=== PATIENT | female | born 1930 | race Caucasian/White ===

== ENCOUNTER 2020-04-13 09:58 | Inpatient (IN) | payer MEDICARE, BC, OTHER ==
--- NOTE | 2020-04-13 10:30 | RAD ---
Exam:2 views left hip HISTORY: Pain. Injury. Fall. COMPARISON: None FINDINGS: Comminuted intertrochanteric fracture. Visualized left bony pelvis and sacrum are intact. There is diffuse bony mineralization. IMPRESSION: Intertrochanteric fracture.
--- NOTE | 2020-04-13 10:49 | RAD ---
EXAM: XR Pelvis AP STANDARD PROVIDED CLINICAL HISTORY: Left hip pain after fall from standing. COMPARISON: None FINDINGS: There is a comminuted intertrochanteric left hip fracture with mild separation of fracture fragments. Lesser trochanter fracture fragment is slightly displaced medially. Slight varus angulation of fracture fragments is present. No additional fracture is seen, and there is no dislocation. Degenerat thong change seen in the visualized lower lumbar spine. Vascular calcifications and phleboliths overlie the pelvis. IMPRESSION: Comminuted and mildly intertrochanteric left hip fracture with slight varus angulation of f racture fragments.
--- NOTE | 2020-04-13 11:02 | CT ---
Exam: Head CT without contrast HISTORY: Fall. Trauma. Pain. COMPARISON: none FINDINGS: Hemorrhage: No intraparenchymal hemorrhage or extra-axial hematoma. Brain parenchyma: Cortical carroll-white matter differentiation is preserved. No mass effect or midline shift. Basilar cisterns are patent.. White matter hypodensities due to chronic small vessel ischemic change. 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 Remote lacunar inf arct involving the left garcia radiata. Ventricular system: Ventricles and sulci are patent and symmetric. Calvarium: Intact. Sinuses and mastoid air cells: Mucous retention cyst in the right sphenoid sinus. IMPRESSION: No intracranial post traumatic sequelae.
[2020-04-13] MEDS ORDERED: CEFAZOLIN 2 GM in Premix Bag 1 BAG IVPB SCH (11:15)
[2020-04-13 11:20] LABS: #Eosinphils 0.2 thou/uL (0.0-0.7); #Lymphocytes 1.2 thou/uL (1.20-3.40); #Monocytes 0.9 thou/uL (0.11-0.59); #Neutrophils 10.4 thou/uL (1.40-6.50); %Eosinophils 1.5 % (0.0-10.0); %Lymphocytes 9.4 % (21.0-51.0); %Monocytes 7.1 % (0.0-10.0); %Neutrophils 82.1 % (42.0-75.0); Hemoglobin 13.7 g/dL (12.0-16.0); Mean Corpuscular HGB CONC 32.8 g/dL (32.0-36.0); Mean Corpuscular Hemoglobin 30.5 pg (27.0-31.0); Mean Platelet Volume 6.5 fL (7.4-10.4); Platelet Count 170 thou/uL (130-400); RBC Distribution Width 11.5 % (11.5-14.5); Red Blood Cell (RBC) Count 4.48 mill/uL (4.20-5.40); White Blood Cell (WBC) Count 12.6 thou/uL (4.8-10.8)
--- NOTE | 2020-04-13 11:22 | RAD ---
RADIOGRAPH LEFT FEMUR 2 VIEWS: DATE: 04/13/2020. TIME: 10:43 AM. HISTORY: An 89-year-old female with acute traumatic left hip pain radiating down the thigh from fall. FINDINGS: There is an intertrochanteric fracture, with mild to moderate displacement of fragments, and mild clarke us angulation. No fracture of the mid diaphysis or distal metaphysis identified. IMPRESSION: Acute, traumatic, displaced intertrochanteric fracture of the left proximal femur. POS: JIN
--- NOTE | 2020-04-13 11:23 | RAD ---
RADIOGRAPH CHEST 1 VIEW: DATE: 04/13/2020. HISTORY: An 89-year-old female for preoperative clearance FINDINGS: The thoracic aorta is tortuous and ectatic. There is no evidence of air space density, pneumothorax, or pulmonary edema. The lateral costophrenic angles are sharp. There is no cardiomegaly. IMPRESSION: 1) No acute pulmonary findings. 2) Ectasia of thoracic aorta. gilberto [] POS: JIN
[2020-04-13 11:36] LABS: ALT (SGPT) 11 U/L (8-55); AST (SGOT) 16 U/L (5-34); Albumin 3.8 g/dL (3.4-4.8); Alkaline Phosphatase 58 U/L (40-110); Anion Gap 9 mmol/L (10-20); BUN (Urea Nitrogen) 17 mg/dL (9.8-20.1); Bilirubin, Total 0.5 mg/dL (0.2-1.2); Calc. Creatinine Clearance 0 mL/min (70-130); Calcium 8.6 mg/dL (7.8-10.44); Carbon Dioxide 26 mmol/L (23-31); Chloride 107 mmol/L (98-107); Estimated GFR-MDRD 62; Globulin 2.4 g/dL (2.4-3.5); Glucose 127 mg/dL (83-110); Potassium 4.4 mmol/L (3.5-5.1); Protein, Total 6.2 g/dL (6.0-8.3); Sodium 138 mmol/L (136-145)
[2020-04-13] MEDS ORDERED: Clindamycin/D5W 900 MG in Premix Bag 1 BAG IVPB SCH (11:45)
[2020-04-13 11:56] LABS: Phosphorus 3.2 mg/dL (2.3-4.7)
[2020-04-13] MEDS ORDERED: Phenylephrine 10 MG/ML VIAL ONE (12:14)
[2020-04-13] MEDS ORDERED: Acetaminophen 500 MG TAB ONE (12:17)
[2020-04-13] MEDS ORDERED: Fentanyl 100 MCG/2 ML VIAL ONE ×5 (12:38→15:49)
[2020-04-13] MEDS ORDERED: Levofloxacin 500 mg/D5W 100 ml Premix Bag ONE (12:45)
[2020-04-13] MEDS ORDERED: Clindamycin/D5W 900 mg/50 ml Premix Bag ONE (12:45)
[2020-04-13] MEDS ORDERED: Dextrose 5% in Water 1,000 ML IV PRN (12:49)
[2020-04-13] MEDS ORDERED: Dextrose 50% Abboject 50 ML SYRINGE SLOW IVP PRN (12:49)
[2020-04-13] MEDS ORDERED: hydrALAZINE 20 MG/ML VIAL SLOW IVP PRN (12:49)
[2020-04-13] MEDS ORDERED: Morphine 2 MG/ML VIAL SLOW IVP PRN (12:49)
[2020-04-13] MEDS ORDERED: Ondansetron PF 4 MG/2 ML Vial IVP PRN (12:49)
--- NOTE | 2020-04-13 12:53 | CON ---
DATE OF CONSULTATION: HISTORY OF PRESENT ILLNESS: We were asked by ER to see this very nice lady. The patient was at [facility] when she put her foot up on a lower stool to trim her toenails. Her right foot was in a slippery sock and she fell, breaking her left hip. No other injuries or complaints. No loss of consciousness. She states she is for the most part healthy and independent. She takes no blood thinners and has not eaten anything since last night. Her pain currently is tolerable. She is resting on a gurney in room 9 in the emergency room. PAST MEDICAL HISTORY: Positive for some cholesterol, hypertension, some pain, and some osteoporosis. PAST SURGICAL HISTORY: Tonsils when she was young and she has had 3 children. CURRENT MEDICATIONS: 1. Simvastatin. 2. Amlodipine. 3. Tramadol. 4. Alendronate. SENSITIVITIES: To [place], possibly penicillin and aspirin. She does state the aspirin made her feel feverish and the [place] made her stomach hurt. PCN, penicillin, might have been a rash. FAMILY HISTORY: For this visit is noncontributory. SOCIAL HISTORY: Again, she lives in [facility]. No alcohol, nicotine, or drug products whatsoever, and she has two children who live locally. REVIEW OF SYSTEMS: Left hip pain. Otherwise denies any other positive review of systems. PHYSICAL EXAMINATION: GENERAL: Well-nourished, well-developed, very sweet lady, resting on the gurney in room 9. Speech clear. Affect pleasant. Answers questions appropriately. Alert and oriented x3. HEENT: Scalp atraumatic. Face symmetric. Tongue midline. NECK: Supple. Trachea midline. UPPER EXTREMITIES: Equal size, shape, symmetry. Normal bulk and tone. VITAL SIGNS: Respirations 16. No acute distress. PELVIS: No pain with rocking, although it does cause some left hip pain. LOWER EXTREMITIES: Her left lower extremity is almost out to length as her right lower extremity. She does have some tenderness to palpation over her left hip and movement of the leg does cause her some pain. The bilateral lower extremity sensitivities are intact as are movements from the knee down. DP and PT pulses are equal. ASSESSMENT: Left hip fracture. PLAN: Trauma needs to see the patient. I would like her to get into surgery today with Dr. Toney. I spoke to the patient about this and she is amenable to go forth with surgery. I did answer her questions and concerns. We discussed risks and benefits of surgery, and again, she is amenable to go forth with surgery. She will need rapid COVID test, I will get her booked in the OR. Antibiotics ordered, and hopefully, Trauma will allow her medical clearance for surgery today. Job ID: [id number]
[2020-04-13] MEDS ORDERED: traMADol HCl 50 MG TAB PO PRN ×2 (12:57→18:57)
[2020-04-13] MEDS ORDERED: Cyclobenzaprine 10 MG TAB PO PRN (12:57)
[2020-04-13] MEDS ORDERED: Sodium Chloride 0.9% 1,000 ML IV SCH (13:00)
[2020-04-13] MEDS ORDERED: Ibuprofen 200 MG TAB PO PRN (13:42)
[2020-04-13] MEDS ORDERED: traMADol HCl 50 MG TAB PO SCH (14:00)
[2020-04-13] MEDS ORDERED: Promethazine HCl 25 MG/ML VIAL SLOW IVP PRN (14:02)
[2020-04-13] MEDS ORDERED: Promethazine HCl 25 MG/ML VIAL IM PRN (14:02)
[2020-04-13] MEDS ORDERED: PACU-Morphine 4MG/ML VIAL SLOW IVP PRN (14:02)
--- NOTE | 2020-04-13 14:19 | RAD ---
Exam: XR Hip Lt 2-3 View HISTORY: ORIF left hip COMPARISON: 04/13/2020 at 1026 hours. FINDINGS/IMPRESSION: 3 intraoperative fluoroscopic images left hip are submitted. Images demonstrate internal fixation of intertrochanteric left hip fracture with antegrade intramedullary samir and dynamic compression screw as well as distal locking screw transfixing the proximal left femur. There is improvement in alignmen t of fracture fragments. No hardware complication is seen. Subcutaneous emphysematous is seen adjacent to the hip related to recent postoperative change. Fluoroscopy: Time-41.5 seconds Dose-6.58 mGy
[2020-04-13] MEDS ORDERED: Rocuronium Bromide 10 MG/ML (10ML VIAL) ONE (14:23)
[2020-04-13] MEDS ORDERED: Dexamethasone 20 MG/5 ML VIAL ONE (14:23)
[2020-04-13] MEDS ORDERED: EPHEDRINE 25 MG/5 ML SYRINGE ONE (14:23)
[2020-04-13] MEDS ORDERED: PROPOFOL 200 MG/20 ML VIAL ONE (14:23)
[2020-04-13] MEDS ORDERED: PHENYLEPHRINE-NS 100 MCG/ML 10 ML SYRINGE ONE (14:23)
[2020-04-13] MEDS ORDERED: Lidocaine 1% PF 5 ML VIAL ONE (14:23)
[2020-04-13] MEDS ORDERED: Ondansetron PF 4 MG/2 ML Vial ONE (14:23)
--- NOTE | 2020-04-13 16:30 | HP ---
REQUESTING: Dr. Marcum, ER physician. CONSULTS: Orthopedic Surgery, Dr. Toney. PRIMARY CARE PHYSICIAN: William Winter MD CHIEF COMPLAINT: Fall from standing, left hip pain. HISTORY OF PRESENT ILLNESS: This is an 89-year-old female, who presented to the emergency room after a ground level fall. The patient reports that she was attempting to cut her toenails when she lost her balance causing her to fall, landing onto her left hip. The patient denies any loss of consciousness or hitting her head. The patient denies feeling dizzy, weak, short of breath, or having any chest pain prior to the event. The patient denies any recent illnesses such as cough, cold, fever, chills. The patient denies any urinary symptoms such as dysuria. The patient does admit to having a weak bladder. The patient is from [facility]. The patient occasionally uses a walker to ambulate. The patient reported immediate left hip pain and was not able to ambulate. The patient eventually was able to scoot herself to the phone after 30 minutes after falling to call for help. REVIEW OF SYSTEMS: A 10-point review of systems is negative unless otherwise indicated in the above HPI. ALLERGIES: VICODIN, ASPIRIN, PENICILLIN. CURRENT MEDICATIONS: 1. Tramadol for foot pain. 2. Amlodipine 5 mg daily. 3. Simvastatin 10 mg daily. 4. Tramadol 50 mg daily. 5. Alendronate 70 mg once daily. PAST MEDICAL HISTORY: Hypertension and high cholesterol. PAST SURGICAL HISTORY: Tonsillectomy. SOCIAL HISTORY: Lives at [facility]. Denies alcohol use. Denies history of smoking, denies illicit drug use. OBJECTIVE: VITAL SIGNS: Blood pressure 128/77, pulse 62, respirations 18, SpO2 of 97% on room air. GENERAL: Well-appearing elderly female, lying in ER bed, awake and alert, in no distress. HEENT: Head is atraumatic and normocephalic. Mucous membranes are moist, extraocular muscles are intact, pupils are equal bilateral, no cervical spine tenderness, normal range of motion of neck, trachea is midline. RESPIRATORY: Equal chest rise and fall, bilateral breath sounds clear, no wheezing, rales, or rhonchi. CARDIAC: Regular rate and regular rhythm, no murmurs. ABDOMEN: Soft, nontender, nondistended, pelvis is stable, tenderness to left hip. EXTREMITIES: Neurovascularly intact x4, left lower extremity mildly externally rotated and shortened. NEUROLOGIC: Cranial nerves 2 through 12 intact, no focal deficits, GCS 15. LABORATORY DATA: WBC 12.6, RBC 4.48, hemoglobin 13.7, hematocrit 41.6, platelets 170. Sodium 138, potassium 4.4, chloride 107, BUN 17, creatinine 0.86, estimated GFR 62, glucose 127, calcium 8.6, phosphorus 3.2, magnesium 2.0. AST 16, ALT 11, alkaline phos 58. Troponin I less than 0.010. Albumin 3.8. DIAGNOSTIC DATA: Left hip x-ray, impression; intertrochanteric fracture left hip. Pelvis x-ray, impression; comminuted and mildly intertrochanteric left hip fracture with slight valgus angulation of fracture fragments. Brain CT, impression; no intracranial posttraumatic sequel. Left femur x-ray; acute displaced intertrochanteric fracture of the left proximal femur. Chest x-ray, impression; no acute pulmonary findings. IMPRESSION: 1. Status post mechanical fall. 2. Left intertrochanteric femur fracture. 3. Acute traumatic pain secondary to above. 4. History of hypertension and hyperlipidemia. PLAN: Admit to the surgical floor. The patient will be n.p.o. with medications and sips of water. Orthopedic Surgery plans to take her to the OR today for repair of her left femoral neck fracture. Regular diet as tolerated postop. PT and OT to evaluate and treat postop. Pain management and supportive care. We will place a rehab screen for continued physical therapy. We will repeat labs in the morning. If the patient's hemoglobin is stable, we will start the patient on chemical VTE prophylaxis. The plan was discussed with the patient and the patient's daughter who agrees. The plan will be discussed with the attending after this dictation. Job ID: [id number]
[2020-04-13 18:15] LABS: SARS-CoV-2 MS2 Positive; SARS-CoV-2 N Gene Negative; SARS-CoV-2 S Gene Negative; SARS-CoV-2 by NAA Not Detected (NotDetected); SARS-CoV-2 orf1ab Negative
[2020-04-13] MEDS: Acetaminophen 500 MG TAB PO SCH ×2 (20:32→23:12)
[2020-04-13] MEDS: Clindamycin/D5W 900 MG in Premix Bag 1 BAG IVPB SCH (20:46)
[2020-04-13] MEDS: Famotidine 20 MG TAB PO SCH (20:47)
[2020-04-13] MEDS: Senokot S 8.6-50 MG TAB PO SCH (20:47)
[2020-04-13 23:26] VITALS: BMI 25.0
[2020-04-14 01:15] LABS: Bacteria/HPF None Seen HPF (None Seen); Bilirubin Negative (Negative); Blood, Urine Negative (Negative); Clarity Clear (Clear); Glucose, Urine (Dipstick) 150 mg/dL (Negative); Ketone, Urine 40 mg/dL (Negative); Leukocyte Negative Leu/uL (Negative); Mucous/LPF 2+ LPF (<2+); Nitrite Negative (Negative); Protein, Urine (Dipstick) 30 mg/dL (Neg-Trace); RBC/HPF 0-3 HPF (0-3); Specific Gravity, Urine 1.027 (1.002-1.036); Squamous Epithelial None Seen HPF (0-3); Urobilinogen Normal mg/dL (Less than 2); WBC/HPF 0-3 HPF (0-3); pH, Urine 5.5 (5.0-9.0)
--- NOTE | 2020-04-14 01:19 | PRG ---
DATE OF SERVICE: 04/13/2020 SUBJECTIVE: The patient was seen this evening during rounds. She was lying in bed, resting comfortably and asleep with no signs of acute distress. Nursing reported no acute events. She is postoperative day 0 after fixation of the left intertrochanteric femur fracture. OBJECTIVE: VITAL SIGNS: Temperature 97.7, pulse 71, respirations 17, oxygen saturation 96% on room air, and blood pressure 106/60. GENERAL: Well-appearing elderly female, lying in bed, resting comfortably and asleep with no signs of acute distress. PULMONARY: Equal chest rise and fall. No signs of acute respiratory distress. ASSESSMENT: 1. Status post ground level fall. 2. Left intertrochanteric femur fracture, status post repair. 3. History of hypertension and hyperlipidemia. PLAN: Continue current regular diet. Discontinue IV fluids after 1 L is completed. The patient to start working with Physical and Occupational Therapy tomorrow. She will need placement in acute rehab facility. We have asked for that process to be started by Case Management. Job ID: [id number]
[2020-04-14] MEDS: Clindamycin/D5W 900 MG in Premix Bag 1 BAG IVPB SCH (04:36)
[2020-04-14] MEDS: Acetaminophen 500 MG TAB PO SCH ×3 (05:06→17:14)
[2020-04-14 06:06] LABS: Hemoglobin 10.6 g/dL (12.0-16.0); Mean Corpuscular HGB CONC 32.2 g/dL (32.0-36.0); Mean Corpuscular Hemoglobin 29.8 pg (27.0-31.0); Mean Corpuscular Volume 92.6 fL (78.0-98.0); Mean Platelet Volume 6.6 fL (7.4-10.4); Platelet Count 150 thou/uL (130-400); RBC Distribution Width 11.5 % (11.5-14.5); Red Blood Cell (RBC) Count 3.55 mill/uL (4.20-5.40); White Blood Cell (WBC) Count 8.7 thou/uL (4.8-10.8)
[2020-04-14 06:10] LABS: Phosphorus 3.3 mg/dL (2.3-4.7)
[2020-04-14 06:15] LABS: Anion Gap 12 mmol/L (10-20); BUN (Urea Nitrogen) 15 mg/dL (9.8-20.1); Calc. Creatinine Clearance 46 mL/min (70-130); Calcium 7.9 mg/dL (7.8-10.44); Carbon Dioxide 20 mmol/L (23-31); Chloride 107 mmol/L (98-107); Estimated GFR-MDRD 60; Glucose 152 mg/dL (83-110); Magnesium 1.7 mg/dL (1.6-2.6); Potassium 4.5 mmol/L (3.5-5.1); Sodium 134 mmol/L (136-145)
--- NOTE | 2020-04-14 07:58 | OP ---
DATE OF PROCEDURE: 04/13/2020 PROCEDURE PERFORMED: Left femur intramedullary nail. PREOPERATIVE DIAGNOSIS: Left intertrochanteric femur fracture. POSTOPERATIVE DIAGNOSIS: Left intertrochanteric femur fracture. COMPLICATIONS: None. ESTIMATED BLOOD LOSS: 50 mL. GLOBAL CATEGORY MANAGER: Laquita Lopez PA-C IMPLANTS: Short trochanteric nail from [employer] size 9. INDICATIONS FOR PROCEDURE: Ms. Burns is an 89-year-old female, who has fallen and fractured her left proximal femur. She has been indicated for intramedullary nail fixation of the left femur to restore the ability to mobilize and promote healing. Risks do include infection, pain, nerve or vascular injury, DVT, nonunion, and medical complications. DESCRIPTION OF PROCEDURE: Ms. Burns was identified in the preoperative holding area. Her correct extremity was marked. She was carried to the operating room. She was positioned supine. General anesthesia was induced. A multidisciplinary time-out was performed. The left lower extremity was prepped and draped in sterile fashion. We performed a reduction maneuver by pulling traction on the left femur and rotationally reducing the fracture. We took x-ray images confirming this. We then made a small incision over the tip of the trochanter. We inserted the guidewire. We overdrilled the guidewire. We inserted our trochanteric nail from proximal to distal. We placed our guide pin in the centered position of the femoral head. We then inserted a 95 mm helical blade. This was placed in a dynamic position. Finally, we placed a distal Crosslock screw. We took final x-ray images in orthogonal planes. We thoroughly irrigated with copious lavage. We then closed with 0 Vicryl suture, 2-0 Vicryl suture, and tank for the skin. A sterile dressing was applied. The bilingual medical assistant surgeon was responsible for positioning the patient, preparing the injured extremity, applying the tourniquet, and assisting in preparation for surgery. The bilingual medical assistant was instrumental in reducing the injured limb by applying traction and reduction maneuvers as well as holding retractors and reduction tools. The bilingual medical assistant also was instrumental in assisting in exposure throughout the operation using appropriate retractors. The bilingual medical assistant participated in closure of the operative site as well as dressing application and splint application. Job ID: [id number]
[2020-04-14] MEDS: Famotidine 20 MG TAB PO SCH (08:42)
[2020-04-14] MEDS: Senokot S 8.6-50 MG TAB PO SCH ×2 (08:43→21:20)
[2020-04-14] MEDS: Polyethylene Glycol 3350 17 GM Packet PO SCH (08:43)
[2020-04-14] MEDS: traMADol HCl 50 MG TAB PO SCH (17:13)
--- NOTE | 2020-04-14 19:05 | PRG ---
DATE OF SERVICE: 04/14/2020 SUBJECTIVE: The patient was seen during morning rounds with Dr. Iglesias. The patient was awake, alert, in no distress. The patient reports she already walked earlier with physical therapy. The patient did have some moderate pain with ambulation with physical therapy. The patient is postop day #1, status post repair of her left intertrochanteric femur fracture. The patient had no overnight events. OBJECTIVE: VITAL SIGNS: Temperature 97.6, pulse 71, respirations 20, SpO2 of 96% on room air, blood pressure 99/62. GENERAL: Well-appearing elderly female, awake, alert, in no distress. HEENT: Atraumatic and normocephalic. Mucous membranes are moist. RESPIRATORY: Equal chest rise and fall. Breath sounds clear. No respiratory distress. CARDIAC: Regular rate, regular rhythm. No pedal edema. EXTREMITIES: Neurovascularly intact x4. NEUROLOGIC: No focal deficits. GCS 15. LABORATORY DATA: WBC 8.7, RBC 3.55, hemoglobin 10.6, hematocrit 32.9, platelets 150. Sodium 134, potassium 4.5, chloride 107, BUN 15, creatinine 0.89, estimated GFR 60, glucose 152, calcium 7.9, phosphorus 3.3, magnesium 1.9. DIAGNOSTICS: There is no new diagnostics to review today. ASSESSMENT: 1. Status post mechanical fall. 2. Left intertrochanteric femur fracture, postop day #1. 3. Acute traumatic pain secondary to above, improving. 4. History of hypertension and hyperlipidemia. 5. Hyponatremia. PLAN: Continue supportive care and pain regimen. Continue to increase physical and occupational therapy. Replace electrolytes. We will place the patient on 1 L free water restriction for hyponatremia. Rehab screen has been placed, pending authorization. We will discontinue the patient's Webster catheter. We will also schedule the patient's tramadol 50 mg and have 50 mg p.r.n. We will repeat labs in the morning. The patient was examined by Dr. Iglesias during morning rounds. The plan was discussed with the patient, who agrees. Job ID: [id number]
[2020-04-14] MEDS: traMADol HCl 50 MG TAB PO PRN (21:21)
[2020-04-14] MEDS: Ibuprofen 200 MG TAB PO SCH (21:22)
--- NOTE | 2020-04-15 00:36 | PRG ---
DATE OF SERVICE: 04/14/2020 SUBJECTIVE: Patient was seen this evening during rounds. She was getting on the bed perry to try to have a bowel movement. Nursing reported no acute events. OBJECTIVE: VITAL SIGNS: Temperature 98.4, pulse 68, respirations 20, oxygen saturation 96% on room air, and blood pressure 115/73. GENERAL: Well-appearing elderly female, lying in bed, no signs of acute distress. PULMONARY: Equal chest rise and fall. No signs of acute respiratory distress. ASSESSMENT: 1. Status post ground level fall. 2. Left intertrochanteric femur fracture, status post repair. 3. Hyponatremia. 4. History of hypertension and hyperlipidemia. PLAN: Continue current diet and pain regimen. Continue 1 L free water restriction. Discontinue Webster. Start subcu heparin for DVT prophylaxis. Patient is allergic to aspirin. She is pending placement at an acute rehab facility. Repeat blood work in the morning. Job ID: [id number]
[2020-04-15] MEDS: traMADol HCl 50 MG TAB PO SCH ×4 (00:46→18:42)
[2020-04-15] MEDS: Acetaminophen 500 MG TAB PO SCH ×4 (00:46→17:29)
[2020-04-15 06:20] LABS: Hemoglobin 8.9 g/dL (12.0-16.0); Mean Corpuscular HGB CONC 33.4 g/dL (32.0-36.0); Mean Corpuscular Hemoglobin 31.3 pg (27.0-31.0); Mean Corpuscular Volume 93.6 fL (78.0-98.0); Mean Platelet Volume 6.8 fL (7.4-10.4); Platelet Count 131 thou/uL (130-400); RBC Distribution Width 11.7 % (11.5-14.5); Red Blood Cell (RBC) Count 2.83 mill/uL (4.20-5.40); White Blood Cell (WBC) Count 8.1 thou/uL (4.8-10.8)
[2020-04-15] MEDS: Ibuprofen 200 MG TAB PO SCH ×2 (06:37→14:03)
[2020-04-15 06:44] LABS: Anion Gap 11 mmol/L (10-20); BUN (Urea Nitrogen) 14 mg/dL (9.8-20.1); Calc. Creatinine Clearance 44 mL/min (70-130); Calcium 8.3 mg/dL (7.8-10.44); Carbon Dioxide 25 mmol/L (23-31); Chloride 109 mmol/L (98-107); Estimated GFR-MDRD 58; Glucose 104 mg/dL (83-110); Magnesium 2.1 mg/dL (1.6-2.6); Phosphorus 3.4 mg/dL (2.3-4.7); Sodium 141 mmol/L (136-145)
[2020-04-15] MEDS ORDERED: Ferrous Sulfate 325 MG TAB PO SCH ×2 (08:00→21:00)
[2020-04-15] MEDS ORDERED: Famotidine 20 MG TAB PO SCH (09:00)
[2020-04-15] MEDS: Senokot S 8.6-50 MG TAB PO SCH ×2 (09:30→20:21)
[2020-04-15] MEDS: Heparin 5,000 UNITS/ML VIAL SC SCH ×2 (09:32→20:20)
[2020-04-15] MEDS: Ascorbic Acid 500 mg Chewable Tablet PO SCH ×2 (09:32→20:20)
[2020-04-15] MEDS: Polyethylene Glycol 3350 17 GM Packet PO SCH (09:43)
[2020-04-15 20:09] VITALS: BP 120/72; TEMP 98
[2020-04-15] MEDS: traMADol HCl 50 MG TAB PO PRN (20:20)
[2020-04-15] MEDS ORDERED: Simvastatin 10 MG TAB PO SCH (21:00)
== END 2020-04-15 21:15 | DRG 481 ==
LOC: ERS 09:58 → SDC 12:34 → T4-B 12:57
PROVIDERS: ADMIT Surgery; ATTEND Surgery
PROC: 0QS736Z Reposition Left Upper Femur with Intramedullary Internal Fixation Device, Percutaneous Approach (ICD-10-PCS; principal; 2020-04-13)
DX: S72.142A Displaced intertrochanteric fracture of left femur, initial encounter for closed fracture (principal); E87.1 Hypo-osmolality and hyponatremia; Z20.828 Contact with and (suspected) exposure to other viral communicable diseases; W18.30XA Fall on same level, unspecified, initial encounter; I10 Essential (primary) hypertension; M81.0 Age-related osteoporosis without current pathological fracture; E78.5 Hyperlipidemia, unspecified; Z88.0 Allergy status to penicillin; Z88.8 Allergy status to other drugs, medicaments and biological substances; Z90.89 Acquired absence of other organs
CPT/HCPCS: 36415; 70450; 71045; 72170; 76000; 80048; 80053; 81001; 83735; 84100; 84484; 85025; 85027; 87635; C1713; G0390; J1100; J1644; J1956; J2370; J2405; J2704; J3010; J3490; U0003